=== PATIENT | male | born 1975 | race Caucasian/White ===

== ENCOUNTER 2025-08-08 07:56 | Outpatient (CLI) | payer BC | END 2025-08-08 07:57 | disposition home or self-care (01) | LOC: SCSMRI 07:56 | PROVIDERS: ATTEND Orthopaedic Surgery | DX: M54.6 Pain in thoracic spine (principal); M47.814 Spondylosis without myelopathy or radiculopathy, thoracic region | CPT/HCPCS: 72146 ==